=== PATIENT | female | born 1995 | race Caucasian/White ===

== ENCOUNTER → 2021-11-29 09:57 | Outpatient (BNVA) | payer OTHER, SELFPAY | PROVIDERS: Family Provider Nurse Practitioner Family; PCP Nurse Practitioner Family; Visit Provider Family Medicine | DX: F33.9 Major depressive disorder, recurrent, unspecified (principal); F41.1 Generalized anxiety disorder; R63.5 Abnormal weight gain; Z76.89 Persons encountering health services in other specified circumstances | CPT/HCPCS: 80053; 83036; 84443; 85025 ==

== ENCOUNTER → 2023-06-03 13:13 | Outpatient (BNVA) | payer OTHER, SELFPAY | PROVIDERS: Family Provider Nurse Practitioner Family; PCP Nurse Practitioner Family; Visit Provider Family Medicine | DX: M25.50 Pain in unspecified joint (principal); R60.0 Localized edema; F33.9 Major depressive disorder, recurrent, unspecified; F41.1 Generalized anxiety disorder; R63.5 Abnormal weight gain; E83.52 Hypercalcemia | CPT/HCPCS: 80053; 80061; 82306; 83036; 84443; 84550; 85025; 85651; 86038; 86140; 86200; 86431 ==

== ENCOUNTER → 2023-07-08 14:41 | Outpatient (BNVA) | payer OTHER, SELFPAY | PROVIDERS: Family Provider Nurse Practitioner Family; PCP Nurse Practitioner Family; Visit Provider Family Medicine | DX: R79.82 Elevated C-reactive protein (CRP) (principal); M25.50 Pain in unspecified joint; R76.8 Other specified abnormal immunological findings in serum | CPT/HCPCS: 80053; 84443; 85025; 86036; 86038; 86140; 86200; 86431 ==

== ENCOUNTER → 2023-07-15 11:58 | Outpatient (BNVA) | payer OTHER, SELFPAY | PROVIDERS: Family Provider Nurse Practitioner Family; PCP Family Medicine; Visit Provider Internal Medicine | DX: R76.8 Other specified abnormal immunological findings in serum (principal); R79.82 Elevated C-reactive protein (CRP); M25.50 Pain in unspecified joint | CPT/HCPCS: 36415; 73120; 82550; 82728; 82784; 83516; 83540; 86140; 86200; 86480; 86704; 86803; 87340 ==

== ENCOUNTER → 2023-09-03 10:11 | Outpatient (BNVA) | payer OTHER, SELFPAY | PROVIDERS: Family Provider Nurse Practitioner Family; PCP Family Medicine; Visit Provider Internal Medicine | DX: R79.82 Elevated C-reactive protein (CRP) (principal); L40.9 Psoriasis, unspecified; M47.816 Spondylosis without myelopathy or radiculopathy, lumbar region | CPT/HCPCS: 36415; 72100; 72202; 73560; 80053; 82550; 83520; 84100; 85025; 85651; 86003; 86008; 86140 ==

== ENCOUNTER → 2023-11-04 13:58 | Outpatient (BNVA) | payer OTHER, SELFPAY | PROVIDERS: Family Provider Nurse Practitioner Family; PCP Family Medicine; Visit Provider Family Medicine | DX: E83.42 Hypomagnesemia (principal); D50.9 Iron deficiency anemia, unspecified; M06.9 Rheumatoid arthritis, unspecified; Z79.899 Other long term (current) drug therapy; I10 Essential (primary) hypertension; E83.52 Hypercalcemia; R03.0 Elevated blood-pressure reading, without diagnosis of hypertension; R60.0 Localized edema; R79.82 Elevated C-reactive protein (CRP); M25.50 Pain in unspecified joint; N76.0 Acute vaginitis; B96.89 Other specified bacterial agents as the cause of diseases classified elsewhere; B37.31 Acute candidiasis of vulva and vagina | CPT/HCPCS: 80053; 81003; 82306; 82607; 82728; 82746; 83550; 83735; 84550; 85025; 85651; 86140 ==

== ENCOUNTER → 2023-12-06 11:07 | Outpatient (BNVA) | payer OTHER, SELFPAY | PROVIDERS: Family Provider Nurse Practitioner Family; PCP Family Medicine; Visit Provider Internal Medicine | DX: R76.8 Other specified abnormal immunological findings in serum (principal); R79.82 Elevated C-reactive protein (CRP); R79.89 Other specified abnormal findings of blood chemistry; M25.50 Pain in unspecified joint; M05.9 Rheumatoid arthritis with rheumatoid factor, unspecified; D64.9 Anemia, unspecified; Z79.899 Other long term (current) drug therapy | CPT/HCPCS: 36415; 71046; 80053; 81001; 85025; 85651; 86140 ==

== ENCOUNTER → 2024-05-04 13:41 | Outpatient (BNVA) | payer OTHER, SELFPAY | PROVIDERS: Family Provider Nurse Practitioner Family; PCP Family Medicine; Visit Provider Internal Medicine Rheumatology | DX: M05.79 Rheumatoid arthritis with rheumatoid factor of multiple sites without organ or systems involvement (principal); Z79.899 Other long term (current) drug therapy; Z71.85 Encounter for immunization safety counseling | CPT/HCPCS: 36415; 80076; 82306; 82565; 82728; 83540; 83550; 85025 ==

== ENCOUNTER → 2024-11-02 13:59 | Outpatient (BNVA) | payer OTHER, SELFPAY | PROVIDERS: Family Provider Nurse Practitioner Family; PCP Family Medicine; Visit Provider Internal Medicine Rheumatology | DX: M05.79 Rheumatoid arthritis with rheumatoid factor of multiple sites without organ or systems involvement (principal); Z79.899 Other long term (current) drug therapy | CPT/HCPCS: 36415; 80076; 82565; 85025; 85651; 86140 ==